=== PATIENT | male | born 1960 | race Two or more races ===

== ENCOUNTER → 2017-01-10 | Outpatient (CLI) | payer BC ==
--- NOTE | 2017-01-10 11:18 | ECGEPIP ---
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
--- NOTE | 2017-01-10 11:59 | REP ---
CHEST X-RAY PA AND LATERAL: 01/10/2017. Comparison: 08/30/2011, 03/30/2008. Clinical history: Hypertension. Findings: The lungs are well inflated and clear. There is no infiltrate, effusion, atelectasis or mass. The heart, mediastinal and hilar contours were normal. The bony thorax shows no focal lesion but there are marginal osteophytes present. No compression deformity is seen. There is no free air under the diaphragm. Impression: 1. No acute cardiopulmonary disease, stable chest. Signed by Vinnie Sepulveda MD 01/10/2017 07:34 P
[2017-01-10 12:05] LABS: MEAN CORPUSCULAR HEMOGLOBIN 32.6 pg (27.0-33.0); MEAN CORPUSCULAR HGB CONC 34.2 g/dl (32.0-36.5); MEAN CORPUSCULAR VOLUME 95.4 fl (80.0-96.0); RED CELL DISTRIBUTION WIDTH 11.7 % (11.5-14.5); WHITE BLOOD COUNT 4.3 K/mm3 (4.0-10.0)
[2017-01-10 13:03] LABS: ALBUMIN 4.4 GM/DL (3.2-5.2); ALBUMIN/GLOBULIN RATIO 1.26 (1.00-1.93); ALKALINE PHOSPHATASE 123 U/L (45-117); ALT/SGPT 97 U/L (12-78); ANION GAP 10 MEQ/L (8-16); AST/SGOT 47 U/L (15-37); BILIRUBIN,TOTAL 0.6 MG/DL (0.2-1.0); BLOOD UREA NITROGEN 14 MG/DL (7-18); CALCIUM LEVEL 9.5 MG/DL (8.5-10.1); CARBON DIOXIDE LEVEL 28 MEQ/L (21-32); CHLORIDE LEVEL 101 MEQ/L (98-107); CHOLESTEROL LEVEL 267 MG/DL (<200); CREATININE FOR GFR 0.79 MG/DL (0.70-1.30); GLOMERULAR FILTRATION RATE > 60.0 (>56); GLUCOSE, FASTING 118 MG/DL (70-105); POTASSIUM SERUM 3.8 MEQ/L (3.5-5.1); SODIUM LEVEL 139 MEQ/L (136-145); THYROXINE (T4) 8.1 UG/DL (4.5-12.0); TOTAL PROTEIN 7.9 GM/DL (6.4-8.2); TRIGLYCERIDES LEVEL 123 MG/DL (<150)
== END ==
LOC: M LAB 09:30
PROVIDERS: ATTEND Family Medicine
DX: I10 Essential (primary) hypertension (principal); N40.0 Benign prostatic hyperplasia without lower urinary tract symptoms
CPT/HCPCS: 36415; 71020; 80053; 80061; 83036; 84403; 84436; 84443; 84480; 85027; 93005; G0103

== ENCOUNTER → 2018-10-25 | Outpatient (CLI) | payer BC ==
[2018-10-25 17:03] LABS: BASO % 0.6 % (0.0-1.0); EOS % 0.4 % (0.0-3.0); HEMATOCRIT 45.4 % (42.0-52.0); HEMOGLOBIN 15.6 g/dl (13.5-17.5); IMMATURE GRANULOCYTE % 0.2 % (0-3.0); LYMPH # 1.5 10^3/uL (1.5-4.5); LYMPH % 28.1 % (24.0-44.0); MEAN CORPUSCULAR HEMOGLOBIN 33.1 pg (27.0-33.0); MEAN CORPUSCULAR HGB CONC 34.4 g/dl (32.0-36.5); MEAN CORPUSCULAR VOLUME 96.2 fl (80.0-96.0); MONO # 0.4 10^3/uL (0.0-0.8); MONO % 7.8 % (0.0-5.0); NEUTROPHILS # 3.3 10^3/uL (1.8-7.7); NEUTROPHILS % 62.9 % (36.0-66.0); PLATELET COUNT, AUTOMATED 196 10^3/uL (150-450); RED BLOOD COUNT 4.72 10^6/uL (4.30-6.10); RED CELL DISTRIBUTION WIDTH 11.9 % (11.5-14.5); WHITE BLOOD COUNT 5.2 10^3/uL (4.0-10.0)
[2018-10-25 17:13] LABS: ALBUMIN 4.2 GM/DL (3.2-5.2); ALBUMIN/GLOBULIN RATIO 1.17 (1.00-1.93); ALKALINE PHOSPHATASE 100 U/L (45-117); ALT/SGPT 111 U/L (12-78); ANION GAP 9 MEQ/L (8-16); AST/SGOT 58 U/L (7-37); BILIRUBIN,TOTAL 0.6 MG/DL (0.2-1.0); BLOOD UREA NITROGEN 9 MG/DL (7-18); CALCIUM LEVEL 9.2 MG/DL (8.5-10.1); CARBON DIOXIDE LEVEL 29 MEQ/L (21-32); CHLORIDE LEVEL 101 MEQ/L (98-107); CREATININE FOR GFR 0.67 MG/DL (0.70-1.30); FREE T4 1.01 NG/DL (0.76-1.46); GLOMERULAR FILTRATION RATE > 60.0 (>56); GLUCOSE, FASTING 84 MG/DL (70-100); POTASSIUM SERUM 3.8 MEQ/L (3.5-5.1); SODIUM LEVEL 139 MEQ/L (136-145); TOTAL PROTEIN 7.8 GM/DL (6.4-8.2)
== END ==
LOC: M WUC 12:50
DX: I10 Essential (primary) hypertension (principal)
CPT/HCPCS: 84443

== ENCOUNTER 2018-11-25 11:39 | Emergency (ER) | payer BC, OTHER ==
[~2018-11-25] VITALS: Ht 167.6 cm; Wt 93.2 kg
[2018-11-25 11:40] VITALS: BP 199/95
[2018-11-25] MEDS ORDERED: LISI20TA (11:46)
[2018-11-25] MEDS ORDERED: ACETAMINOPHEN 325 MG TAB PO ONE (13:00)
[2018-11-25] MEDS ORDERED: IBUPROFEN 600 MG TAB PO ONE (13:00)
--- NOTE | 2018-11-25 13:22 | REP ---
Clinical: Trauma. Technique: Internal rotation, external rotation, and Y view of the left shoulder. 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 Findings include osteophyte and spurring along the acromion process as well as blunting and spurring noted along the inferior margin of the glenoid and humeral head. Subtle injury involving the glenoid including the coracoid process cannot be excluded. Impression: Degenerative changes and evidence for old injury. Subtle injury involving the glenoid and coracoid process cannot be excluded. Electronically Signed by Neville Brewster MD 11/25/2018 01:13 P
== END 2018-11-25 14:33 | disposition home or self-care (01) ==
LOC: M ED 11:39
DX: S49.92XA Unspecified injury of left shoulder and upper arm, initial encounter (principal); M19.012 Primary osteoarthritis, left shoulder; W11.XXXA Fall on and from ladder, initial encounter; Y92.89 Other specified places as the place of occurrence of the external cause; Y99.0 Civilian activity done for income or pay; I10 Essential (primary) hypertension; Z79.899 Other long term (current) drug therapy

== ENCOUNTER → 2021-05-25 | Outpatient (CLI) | payer BC ==
[~2021-05-25] MED LIST: LISI20TA35
[2021-05-25 09:46] LABS: BASO % 0.7 % (0.0-1.0); EOS # 0.1 10^3/uL (0.0-0.5); EOS % 1.4 % (0.0-3.0); HEMATOCRIT 41.5 % (42.0-52.0); HEMOGLOBIN 14.5 g/dl (13.5-17.5); LYMPH # 1.1 10^3/uL (1.5-5.0); LYMPH % 24.3 % (24.0-44.0); MEAN CORPUSCULAR HEMOGLOBIN 32.7 pg (27.0-33.0); MEAN CORPUSCULAR HGB CONC 34.9 g/dl (32.0-36.5); MEAN CORPUSCULAR VOLUME 93.7 fl (80.0-96.0); MONO # 0.6 10^3/uL (0.0-0.8); MONO % 12.7 % (2.0-8.0); NEUTROPHILS # 2.6 10^3/uL (1.5-8.5); NEUTROPHILS % 60.7 % (36.0-66.0); PLATELET COUNT, AUTOMATED 193 10^3/uL (150-450); RED BLOOD COUNT 4.43 10^6/uL (4.30-6.10); WHITE BLOOD COUNT 4.3 10^3/uL (4.0-10.0)
[2021-05-25 10:17] LABS: HEMOGLOBIN A1c 5.4 %
[2021-05-25 10:27] LABS: ALBUMIN 4.1 GM/DL (3.2-5.2); ALT/SGPT 113 U/L (12-78); BLOOD UREA NITROGEN 6 MG/DL (7-18); CALCIUM LEVEL 9.1 MG/DL (8.8-10.2); CARBON DIOXIDE LEVEL 32 MEQ/L (21-32); CHLORIDE LEVEL 94 MEQ/L (98-107); CHOLESTEROL LEVEL 250 MG/DL (<200); CHOLESTEROL RISK RATIO 2.551 (<5); CREATININE FOR GFR 0.56 MG/DL (0.70-1.30); GLOMERULAR FILTRATION RATE > 60.0 (>49); GLUCOSE, FASTING 118 MG/DL (70-100); HDL CHOLESTEROL 98 MG/DL (>40); LDL CHOLESTEROL 142 MG/DL (<100); NON-HDL-C 152 MG/DL; POTASSIUM SERUM 3.2 MEQ/L (3.5-5.1); SODIUM LEVEL 132 MEQ/L (136-145); TOTAL PROTEIN 7.3 GM/DL (6.4-8.2); TRIGLYCERIDES LEVEL 52 MG/DL (<150)
== END ==
LOC: M LAB 08:14
PROVIDERS: ATTEND Physician Assistant Medical
DX: I10 Essential (primary) hypertension (principal)

== ENCOUNTER → 2021-06-19 | Outpatient (CLI) | payer BC ==
--- NOTE | 2021-06-19 08:23 | REP ---
INDICATION: ELEVATED LABS. COMPARISON: None. TECHNIQUE: Transabdominal right upper quadrant sonography. FINDINGS: Scanning through the right upper quadrant of the abdomen demonstrates a normal sized, thin-walled gallbladder without evidence of stone or polyp. Common bile duct is normal measuring 0.5 cm in greatest diameter. No focal liver lesion is seen. Liver size is normal. No pancreatic abnormality is observed. No right renal abnormality is seen. There is no evidence of ascites. The right kidney measures 11.7 x 6.5 x 5.7 cm. There is evidence of mild fatty infiltration of the liver. IMPRESSION: Evidence of mild fatty infiltration of the liver. Otherwise negative right upper quadrant sonogram.. <Electronically signed by Pedro Luis Steel > 06/19/21 1940
== END ==
LOC: M RAD 07:11
PROVIDERS: ATTEND Physician Assistant Medical
DX: R74.8 Abnormal levels of other serum enzymes (principal)

== ENCOUNTER → 2021-07-09 | Outpatient (REF) | payer BC ==
[2021-07-09 19:50] LABS: HEMOGLOBIN A1c 5.4 %
[2021-07-09 19:58] LABS: ALBUMIN 4.3 GM/DL (3.2-5.2); ALT/SGPT 88 U/L (12-78); BILIRUBIN,TOTAL 0.9 MG/DL (0.2-1.0); BLOOD UREA NITROGEN 8 MG/DL (7-18); CALCIUM LEVEL 9.5 MG/DL (8.8-10.2); CARBON DIOXIDE LEVEL 28 MEQ/L (21-32); CHLORIDE LEVEL 92 MEQ/L (98-107); CREATININE FOR GFR 0.63 MG/DL (0.70-1.30); GLOMERULAR FILTRATION RATE > 60.0 (>49); GLUCOSE, FASTING 86 MG/DL (70-100); POTASSIUM SERUM 3.2 MEQ/L (3.5-5.1); SODIUM LEVEL 130 MEQ/L (136-145); TOTAL PROTEIN 7.8 GM/DL (6.4-8.2)
[2021-07-09 20:19] LABS: HEPATITIS B SURFACE ANTIGEN NEGATIVE (NEGATIVE)
[2021-07-09 20:46] LABS: HEPATITIS C VIRUS ABY INDEX 0.1 INDEX (<0.8)
[2021-07-09 20:47] LABS: HEPATITIS B CORE ANTIBODY IGM NEGATIVE (NEGATIVE)
[2021-07-09 20:49] LABS: HEPATITIS A ANTIBODY IGM NEGATIVE (NEGATIVE)
== END ==
LOC: M SFHCADAM 15:34
PROVIDERS: ATTEND Physician Assistant Medical
DX: I10 Essential (primary) hypertension (principal); F10.10 Alcohol abuse, uncomplicated; Z13.220 Encounter for screening for lipoid disorders; Z13.0 Encounter for screening for diseases of the blood and blood-forming organs and certain disorders involving the immune mechanism; R74.8 Abnormal levels of other serum enzymes

== ENCOUNTER 2021-10-07 14:14 | Inpatient (IN) | payer BC ==
[~2021-10-07] VITALS: Ht 165.1 cm; Wt 83.7 kg
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
--- OUTSIDE RECORDS SUMMARY | 2021-10-07 14:21 | CCD ---
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 If such information is present, then the following federally mandated warning applies: This information has been disclosed to you from records protected by federal confidentiality rules (42 CFR part 2). The federal rules prohibit you from making any further disclosure of this information unless further disclosure is expressly permitted by the written consent of the person to whom it pertains or as otherwise permitted by 42 CFR part 2. A general authorization for the release of medical or other information is NOT sufficient for this purpose. The Federal rules restrict any use of the information to criminally investigate or prosecute any alcohol or drug abuse patient.The records that you are about to access may contain highly sensitive health information, the redisclosure of which is protected by Article 27-F of the [facility] Public Health law. If you continue you may have access to information: Regarding HIV / AIDS; Provided by facilities licensed or operated by the [facility] Office of Mental Health; or Provided by the [facility] Office for People With Developmental Disabilities. If such information is present, then the following [facility] mandated warning applies: This information has been disclosed to you from confidential records which are protected by state law. State law prohibits you from making any further disclosure of this information without the specific written consent of the person to whom it pertains, or as otherwise permitted by law. Any unauthorized further disclosure in violation of state law may result in a fine or senior living sentence or both. A general authorization for the release of medical or other information is NOT sufficient authorization for further disc losure. Family History Family Member Name Family Member Gender Family Member Status Date o f Status Description Data Source(s) Unknown Unknown Problem MEDENT ([facility]) Unknown Male Problem MEDENT ([facility]) Encounters Encounter Providers Location Date Indications Data Source(s ) [place] [address] [facility] [address] 07/09/2021 12:00:00 AM EDT eCW1 ([facility]) Unknown [address] [facility] [place] [address] 06/06/2021 12:00:00 AM EDT eCW1 ([facility]) [place] [address] [facility] [place] [address] 06/04/2021 12:00:00 AM EDT eCW1 ([facility]) [place] [address] [facility] [address] 05/17/2021 12:00:00 AM EDT eCW1 ([facility]) Immunizations Vaccine Date Status Description Data Source(s) COVID-19 VACCINE Pfizer 09/27/2021 12:00:00 AM EDT completed [facility] Vaccine Series Complete: YESThis Data wa s Submitted to [facility] Via [employer]. COVID-19 VACCINE Pfizer 03/01/2021 12:00:00 AM EDT completed [facility] Vaccine Series Complete: YESThis Data wa s Submitted to [facility] [employer]. COVID-19 VACCINE Pfizer 02/08/2021 12:00:00 AM EST completed [facility] Vaccine Series Complete: NOThis Data was Submitted to [facility] Via [employer]. Medications Medication Brand Name Start Date Product Form Dose Route Admi nistrative Instructions Pharmacy Instructions Status Indications Reaction Description Data Source(s) Lisinopril 20 MG Oral Tablet Lisinopril 20 MG 06/06/2021 12:00:00 A M EDT 1.0 {tablet} active Lisinopril 20 MG eCW1 ( [facility]) Lisinopril 20 MG Oral Tablet Lisinopril 20 MG 06/06/2021 12:00:00 A M EDT 1.0 {tablet} active Lisinopril 20 MG eCW1 ( [facility]) Lisinopril 20 MG Oral Tablet Lisinopril 20 MG 06/06/2021 12:00:00 A M EDT 1.0 {tablet} active Lisinopril 20 MG eCW1 ( [facility]) Chlorthalidone 25 MG Oral Tablet Chlorthalidone 25 MG 2020 12:00:00 AM EDT 1.0 {tablet_in_the_morning_with_food} active Chlorthalidone 25 MG eCW1 ([facility]) Chlorthalidone 25 MG Oral Tablet Chlorthalidone 25 MG 2020 12:00:00 AM EDT 1.0 {tablet_in_the_morning_with_food} active Chlorthalidone 25 MG eCW1 ([facility]) Chlorthalidone 25 MG Oral Tablet Chlorthalidone 25 MG 2020 12:00:00 AM EDT 1.0 {tablet_in_the_morning_with_food} active Chlorthalidone 25 MG eCW1 ([facility]) Chlorthalidone 25 MG Oral Tablet Chlorthalidone 25 MG 2020 12:00:00 AM EDT 1.0 {tablet_in_the_morning_with_food} active Chlorthalidone 25 MG eCW1 ([facility]) Insurance Providers Payer name Policy type / Coverage type Policy ID Covered libertarian ID Covered libertarian's relationship to yepez Policy Yepez Plan Information BS [facility] Part B [id number] Self Y [id number] BS [facility] Part B [id number] Self BCBS [place] 302/[phone] [id number] SP [id number] BCBS [place] PPO 302/307 [id number] SP [id number] [employer] BCBS FEDERAL [id number] SP [id number] BCBS [place] PPO 302/307 [id number] SP [id number] [place]BS [place] PPO 302/307 [id number] SP [id number] BS [place] Part B [id number] Self V [id number] BS [place] [facility] [id number] Self [facility] [place] [id number] Self V [id number] BS [place] [facility] Part B [id number] Self [employer] () Workers Compensation [id number] Self [id number] [employer] () Workers Compensation [id number] Self [place] () Workers Compensation [id number] Self [id number] [employer] () Workers Compensation [id number] Self [id number] [employer] O [id number] S [id number] [employer] BC-BS PPO [id number] SP [id number] [employer] O [id number] S [id number] [employer] [id number] SP [id number] [employer] O [id number] S [id number] SELF PAY O [id number] S [id number] SELF PAY O UNAVAILABLE [id number] S UNAVAILA BLE [employer] BCBS B [id number] S [id number] OTHER WORKERS COMPENSATION [id number] SP [id number] [employer] [id number] Self [id number] [employer] [id number] Self [id number] SELF PAY ONLY UNAVAILABLE SP UNAV AILABLE BC[employer] [id number] Self [employer] BC-BS PPO 306 [id number] SP [id number] Problems, Conditions, and Diagnoses Code Display Name Description Problem Type Effective Dates Data Source(s) I10 [id number] Essential hypertension Problem 05/17/2021 12 :00:00 AM EDT eCW1 ([facility]) F10.10 [id number] Alcohol abuse Problem 05/17/2021 12:00:00 AM EDT eCW1 ([facility]) Surgeries/Procedures Procedure Description Date Indications Data Source(s) ECG ROUTINE ECG W/LEAST 12 LDS W/I&R 05/17/2021 12:00: 00 AM EDT eCW1 ([facility]) Results ID Date Data Source HEPATITIS C ANTIBODY INDEX 07/09/2021 12:00:00 AM EDT eCW1 ( [facility]) Name Value Range Interpretation Code Description Data Whit rce(s) Supporting Document(s) 0.1 <0.8 HEPATITIS C VIRUS DEBRA INDEX eC W1 ([facility]) ID Date Data Source HEPATITIS B SURFACE ANTIGEN 07/09/2021 12:00:00 AM EDT eCW1 ([facility]) Name Value Range Interpretation Code Description Data Whit rce(s) Supporting Document(s) NEGATIVE NEGATIVE HEPATITIS B SURFACE ANTIG EN eCW1 ([facility]) ID Date Data Source HEPATITIS B CORE ANTIBODY IGM 07/09/2021 12:00:00 AM EDT eCW 1 ([facility]) Name Value Range Interpretation Code Description Data Whit rce(s) Supporting Document(s) NEGATIVE NEGATIVE HEPATITIS B CORE ANTIBODY IGM eCW1 ([facility]) ID Date Data Source [id number] 07/09/2021 12:00:00 AM EDT eCW1 (Counts include 234 beds at the [facility]) Name Value Range Interpretation Code Description Data Whit rce(s) Supporting Document(s) Hemoglobin A1c/Hemoglobin.total in Blood 5.4 HEMOGLOBIN A1c eCW1 ([facility]) ID Date Data Source HEPATITIS A ANTIBODY IGM 07/09/2021 12:00:00 AM EDT eCW1 ([facility]) Name Value Range Interpretation Code Description Data Whit rce(s) Supporting Document(s) NEGATIVE NEGATIVE HEPATITIS A ANTIBODY IGM eCW1 ([facility]) ID Date Data Source Comprehensive Metabolic Profile (CMP) 07/09/2021 12:00:00 AM EDT eCW1 ([facility]) Name Value Range Interpretation Code Description Data Whit rce(s) Supporting Document(s) 86 70-100 GLUCOSE, FASTING eCW1 (Counts include 234 beds at the [facility]) > 60.0 >49 GLOMERULAR FILTRATION RATE eCW 1 ([facility]) 130 136-145 SODIUM LEVEL eCW1 ([facility]) 8 7-18 BLOOD UREA NITROGEN eCW1 ([facility]) 0.63 0.70-1.30 CREATININE FOR GFR eCW1 (Replaced by [facility]) 3.2 3.5-5.1 POTASSIUM SERUM eCW1 ([facility]) 92 98-107 CHLORIDE LEVEL eCW1 ([facility]) 28 21-32 CARBON DIOXIDE LEVEL eCW1 ([facility]) 88 12-78 ALT/SGPT eCW1 ([facility]) 9.5 8.8-10.2 CALCIUM LEVEL eCW1 ([facility]) 58 7-37 AST/SGOT eCW1 ([facility]) 7.8 6.4-8.2 TOTAL PROTEIN eCW1 ([facility]) 0.9 0.2-1.0 BILIRUBIN,TOTAL eCW1 ([facility]) 129 45-117 ALKALINE PHOSPHATASE eCW1 ([facility]) 4.3 3.2-5.2 ALBUMIN eCW1 ([facility]) 1.2 ALBUMIN/GLOBULIN RATIO eCW1 ([facility]) ID Date Data Source ALPHA FETOPROTEIN TUMOR QUANT 07/09/2021 12:00:00 AM EDT eCW 1 ([facility]) Name Value Range Interpretation Code Description Data Whit rce(s) Supporting Document(s) 2.0 <8.1 ALPHA FETOPROTEIN TUMOR Q UANT eCW1 ([facility]) Procedure Social History Code Duration Value Status Description Data Source(s ) Smoking 07/09/2021 12:00:00 AM EDT Never Smoker completed Never S moker eCW1 ([facility]) Smoking 05/17/2021 12:00:00 AM EDT Never Smoker completed Never S moker eCW1 ([facility]) Smoking 05/17/2021 12:00:00 AM EDT Never Smoker completed Never S moker eCW1 ([facility]) Smoking 05/17/2021 12:00:00 AM EDT Never Smoker completed Never S moker eCW1 ([facility]) Vital Signs ID Date Data Source UNK Name Value Range Interpretation Code Description Data Source(s) Body weight 196 [lb_av] 196 [lb_av] eCW1 (Replaced by [facility]) Body height 60 [in_i] 60 [in_i] eCW1 (Counts include 234 beds at the [facility]) Body mass index (BMI) [Ratio] 38.27 kg/m2 38.27 kg/m2 eCW1 ([facility]) Heart rate 106 /min 106 /min eCW1 ([facility]) Respiratory rate 18 /min 18 /min eCW1 ([facility]) Body temperature 96.1 [degF] 96.1 [degF] eCW1 ( [facility]) Systolic blood pressure 136 mm[Hg] 136 mm[Hg] e CW1 ([facility]) Diastolic blood pressure 74 mm[Hg] 74 mm[Hg] eCW1 ([facility]) Body weight 204 [lb_av] 204 [lb_av] eCW1 (Replaced by [facility]) Body height 60 [in_i] 60 [in_i] eCW1 (Counts include 234 beds at the [facility]) Body mass index (BMI) [Ratio] 39.84 kg/m2 39.84 kg/m2 eCW1 ([facility]) Heart rate 82 /min 82 /min eCW1 ([facility]) Respiratory rate 18 /min 18 /min eCW1 ([facility]) Body temperature 98.1 [degF] 98.1 [degF] eCW1 ( [facility]) Systolic blood pressure 186 mm[Hg] 186 mm[Hg] e CW1 ([facility]) Diastolic blood pressure 106 mm[Hg] 106 mm[Hg] eCW1 ([facility]) Patient Treatment Plan of Care Planned Activity Planned Date Details Description Data Source (s) Lisinopril 20 MG Oral Tablet 06/06/2021 12:00:00 AM EDT eCW1 ([facility]) Lisinopril 20 MG Oral Tablet 06/06/2021 12:00:00 AM EDT eCW1 ([facility]) Lisinopril 20 MG Oral Tablet 06/06/2021 12:00:00 AM EDT eCW1 ([facility]) Chlorthalidone 25 MG Oral Tablet 05/17/2021 12:00:00 AM EDT eCW1 ([facility]) Chlorthalidone 25 MG Oral Tablet 05/17/2021 12:00:00 AM EDT eCW1 ([facility]) Chlorthalidone 25 MG Oral Tablet 05/17/2021 12:00:00 AM EDT eCW1 ([facility]) Chlorthalidone 25 MG Oral Tablet 05/17/2021 12:00:00 AM EDT eCW1 ([facility])
--- OUTSIDE RECORDS SUMMARY | 2021-10-07 16:18 | CCD ---
Author Author [facility] Organization [facility] Address Unknown Phone Unavailable Support Name Relationship Address Phone ANA WORKER Next Of Kin [address] [place] [phone] ORGEONJUANITAA Next Of Kin [address] [place] [address] 7 [place] [address] PARAGON Next Of Kin [facility] [place] [address] [employer] Next Of Kin [address] [place] [address] ORGONJUANITAA Next [place] [address] [address] [place] [phone] OrgeonJuanitaa [address] [address] Unavailable Re-disclosure Warning The records that you [...] is protected by Article 27-F of the [facility] Public Health law. If you continue you may have access to information: Regarding HIV / AIDS; Provided by facilities licensed or operated by the [facility] Office of Mental Health; or Provided by the [facility] Office for People With Developmental Disabilities. If such information is present, then the following [facility] mandated warning applies: This information has [...] law may result in a fine or usp sentence or both. A general authorization for [...] Date Indications Data Source(s ) [place] [address] [facility] [address] 07/09/2021 12:00:00 AM EDT eCW1 ([facility]) Unknown [address] [facility] [place] [address] 06/06/2021 12:00:00 AM EDT eCW1 ([facility]) Unknown [address] [facility] [address] 06/04/2021 12:00:00 AM EDT eCW1 ([facility]) [place] [address] [facility] [address] 05/17/2021 12:00:00 AM EDT eCW1 ([facility]) Immunizations Vaccine Date Status Description Data Source(s) COVID-19 VACCINE Pfizer 09/27/2021 12:00:00 AM EDT completed [facility] Vaccine Series Complete: YESThis Data wa s Submitted to [facility]. COVID-19 VACCINE Pfizer 03/01/2021 12:00:00 AM EDT completed [facility] Vaccine Series Complete: YESThis Data wa s Submitted to [facility]. COVID-19 VACCINE Pfizer 02/08/2021 12:00:00 AM EST completed [facility] Vaccine Series Complete: NOThis Data was Submitted to [facility]. Medications Medication Brand Name Start Date Product Form Dose Route Admi nistrative Instructions Pharmacy Instructions Status Indications Reaction Description Data Source(s) Lisinopril 20 MG Oral Tablet Lisinopril 20 MG 06/06/2021 12:00:00 A M EDT 1.0 {tablet} active Lisinopril 20 MG eCW1 ( [facility]) Lisinopril 20 MG Oral Tablet Lisinopril 20 MG 06/06/2021 12:00:00 A M EDT 1.0 {tablet} active Lisinopril 20 MG eCW1 ( [facility]) Lisinopril 20 MG Oral Tablet Lisinopril 20 MG 06/06/2021 12:00:00 A M EDT 1.0 {tablet} active Lisinopril 20 MG eCW1 ( [facility]) Chlorthalidone 25 MG Oral Tablet Chlorthalidone 25 MG 2020 12:00:00 AM EDT 1.0 {tablet_in_the_morning_with_food} active Chlorthalidone 25 MG eCW1 ([facility]) Chlorthalidone 25 MG Oral Tablet Chlorthalidone 25 MG 2020 12:00:00 AM EDT 1.0 {tablet_in_the_morning_with_food} active Chlorthalidone 25 MG eCW1 ([facility]) Chlorthalidone 25 MG Oral Tablet Chlorthalidone 25 MG 2020 12:00:00 AM EDT 1.0 {tablet_in_the_morning_with_food} active Chlorthalidone 25 MG eCW1 ([facility]) Chlorthalidone 25 MG Oral Tablet Chlorthalidone 25 MG 2020 12:00:00 AM EDT 1.0 {tablet_in_the_morning_with_food} active Chlorthalidone 25 MG eCW1 ([facility]) Insurance Providers Payer name Policy type / Coverage type Policy ID Covered green party ID Covered green party's relationship to yepez Policy Yepez Plan Information BS [facility] Part B [id number] Self Y [id number] BS [facility] Part B [id number] Self [place] 302/307 [id number] SP [id number] [place] [place] PPO 302/307 [id number] SP [id number] [employer] BCBS FED[place]AL [id number] SP [id number] [employer] [place] PPO 302/307 [id number] SP [id number] [place] [place] PPO 302/307 [id number] SP [id number] BS [place] [facility] Part B [id number] Self V [id number] BS [place] [facility] Part B [id number] Self BS [place] [facility] Part B [id number] Self V [id number] BS [place] [facility] Part B [id number] Self [employer] () Workers Compensation [id number] Self [id number] [employer] () Workers Compensation [id number] Self [employer] () Workers Compensation [id number] Self [id number] [employer] () Workers Compensation [id number] Self [id number] [employer] O [id number] S [id number] [employer] BC-BS PPO [id number] SP [id number] [employer] O [id number] S [id number] [employer] [id number] SP [id number] [employer] O [id number] S [id number] SELF PAY O [id number] S [id number] SELF PAY O UNAVAILABLE [id number] S UNAVAILA BLE [employer] BCBS B [id number] S [id number] OTHER WORKERS COMPENSATION [id number] SP [id number] [employer] [id number] Self [id number] [employer] [id number] Self [id number] SELF PAY ONLY UNAVAILABLE SP UNAV AILABLE [employer] [id number] Self [employer] BC-BS PPO 306 [id number] SP [id number] Problems, Conditions, and Diagnoses Code Display Name Description Problem Type Effective Dates Data Source(s) I10 [id number] Essential hypertension Problem 05/17/2021 12 :00:00 AM EDT eCW1 ([facility]) F10.10 [id number] Alcohol abuse Problem 05/17/2021 12:00:00 AM EDT eCW1 ([facility]) Surgeries/Procedures Procedure Description Date Indications Data Source(s) ECG ROUTINE ECG W/LEAST 12 LDS W/I&R 05/17/2021 12:00: 00 AM EDT eCW1 ([facility]) Results ID Date Data Source HEPATITIS C ANTIBODY INDEX 07/09/2021 12:00:00 AM EDT eCW1 ( [facility]) Name Value Range Interpretation Code Description Data Whit rce(s) Supporting Document(s) 0.1 <0.8 HEPATITIS C VIRUS DEBRA INDEX eC W1 ([facility]) ID Date Data Source HEPATITIS B SURFACE ANTIGEN 07/09/2021 12:00:00 AM EDT eCW1 ([facility]) Name Value Range Interpretation Code Description Data Whit rce(s) Supporting Document(s) NEGATIVE NEGATIVE HEPATITIS B SURFACE ANTIG EN eCW1 ([facility]) ID Date Data Source HEPATITIS B CORE ANTIBODY IGM 07/09/2021 12:00:00 AM EDT eCW 1 ([facility]) Name Value Range Interpretation Code Description Data Whit rce(s) Supporting Document(s) NEGATIVE NEGATIVE HEPATITIS B CORE ANTIBODY IGM eCW1 ([facility]) ID Date Data Source [id number] 07/09/2021 12:00:00 AM EDT eCW1 ([facility]) Name Value Range Interpretation Code Description Data Whit rce(s) Supporting Document(s) Hemoglobin A1c/Hemoglobin.total in Blood 5.4 HEMOGLOBIN A1c eCW1 ([facility]) ID Date Data Source HEPATITIS A ANTIBODY IGM 07/09/2021 12:00:00 AM EDT eCW1 ([facility]) Name Value Range Interpretation Code Description Data Whit rce(s) Supporting Document(s) NEGATIVE NEGATIVE HEPATITIS A ANTIBODY IGM eCW1 ([facility]) ID Date Data Source Comprehensive Metabolic Profile (CMP) 07/09/2021 12:00:00 AM EDT eCW1 ([facility]) Name Value Range Interpretation Code Description Data Whit rce(s) Supporting Document(s) 86 70-100 GLUCOSE, FASTING eCW1 ([facility]) > 60.0 >49 GLOMERULAR FILTRATION RATE eCW 1 ([facility]) 130 136-145 SODIUM LEVEL eCW1 ([facility]) 8 7-18 BLOOD UREA NITROGEN eCW1 ([facility]) 0.63 0.70-1.30 CREATININE FOR GFR eCW1 ([facility]) 3.2 3.5-5.1 POTASSIUM SERUM eCW1 ([facility]) 92 98-107 CHLORIDE LEVEL eCW1 ([facility]) 28 21-32 CARBON DIOXIDE LEVEL eCW1 ([facility]) 88 12-78 ALT/SGPT eCW1 ([facility]) 9.5 8.8-10.2 CALCIUM LEVEL eCW1 ([facility]) 58 7-37 AST/SGOT eCW1 ([facility]) 7.8 6.4-8.2 TOTAL PROTEIN eCW1 ([facility]) 0.9 0.2-1.0 BILIRUBIN,TOTAL eCW1 ([facility]) 129 45-117 ALKALINE PHOSPHATASE eCW1 ([facility]) 4.3 3.2-5.2 ALBUMIN eCW1 ([facility]) 1.2 ALBUMIN/GLOBULIN RATIO eCW1 ([facility]) ID Date Data Source ALPHA FETOPROTEIN TUMOR QUANT 07/09/2021 12:00:00 AM EDT eCW 1 ([facility]) Name Value Range Interpretation Code Description Data Whit rce(s) Supporting Document(s) 2.0 <8.1 ALPHA FETOPROTEIN TUMOR Q UANT eCW1 ([facility]) Procedure Social History Code Duration Value Status Description Data Source(s ) Smoking 07/09/2021 12:00:00 AM EDT Never Smoker completed Never S moker eCW1 ([facility]) Smoking 05/17/2021 12:00:00 AM EDT Never Smoker completed Never S moker eCW1 ([facility]) Smoking 05/17/2021 12:00:00 AM EDT Never Smoker completed Never S moker eCW1 ([facility]) Smoking 05/17/2021 12:00:00 AM EDT Never Smoker completed Never S moker eCW1 ([facility]) Vital Signs ID Date Data Source UNK Name Value Range Interpretation Code Description Data Source(s) Body weight 196 [lb_av] 196 [lb_av] eCW1 ([facility]) Body height 60 [in_i] 60 [in_i] eCW1 ([facility]) Body mass index (BMI) [Ratio] 38.27 kg/m2 38.27 kg/m2 eCW1 ([facility]) Heart rate 106 /min 106 /min eCW1 ([facility]) Respiratory rate 18 /min 18 /min eCW1 ([facility]) Body temperature 96.1 [degF] 96.1 [degF] eCW1 ( [facility]) Systolic blood pressure 136 mm[Hg] 136 mm[Hg] e CW1 ([facility]) Diastolic blood pressure 74 mm[Hg] 74 mm[Hg] eCW1 ([facility]) Body weight 204 [lb_av] 204 [lb_av] eCW1 ([facility]) Body height 60 [in_i] 60 [in_i] eCW1 ([facility]) Body mass index (BMI) [Ratio] 39.84 kg/m2 39.84 kg/m2 eCW1 ([facility]) Heart rate 82 /min 82 /min eCW1 ([facility]) Respiratory rate 18 /min 18 /min eCW1 ([facility]) Body temperature 98.1 [degF] 98.1 [degF] eCW1 ( [facility]) Systolic blood pressure 186 mm[Hg] 186 mm[Hg] e CW1 ([facility]) Diastolic blood pressure 106 mm[Hg] 106 mm[Hg] eCW1 ([facility]) Patient Treatment Plan of Care Planned Activity Planned Date Details Description Data Source (s) Lisinopril 20 MG Oral Tablet 06/06/2021 12:00:00 AM EDT eCW1 ([facility]) Lisinopril 20 MG Oral Tablet 06/06/2021 12:00:00 AM EDT eCW1 ([facility]) Lisinopril 20 MG Oral Tablet 06/06/2021 12:00:00 AM EDT eCW1 ([facility]) Chlorthalidone 25 MG Oral Tablet 05/17/2021 12:00:00 AM EDT eCW1 ([facility]) Chlorthalidone 25 MG Oral Tablet 05/17/2021 12:00:00 AM EDT eCW1 ([facility]) Chlorthalidone 25 MG Oral Tablet 05/17/2021 12:00:00 AM EDT eCW1 ([facility]) Chlorthalidone 25 MG Oral Tablet 05/17/2021 12:00:00 AM EDT eCW1 ([facility])
--- NOTE | 2021-10-07 16:20 | REPVR ---
PROCEDURE INFORMATION: Exam: CT Head Without Contrast Exam date and time: 10/07/2021 3:58 PM Age: 61 years old Clinical indication: Visual disturbance; Additional info: Blurred vision TECHNIQUE: Imaging protocol: Computed tomography of the head without contrast. Radiation optimization: All CT scans at this facility use at least one of these dose optimization techniques: automated exposure control; mA and/or kV adjustment per patient size (includes targeted exams where dose is matched to clinical indication); or iterative reconstruction. COMPARISON: No relevant prior studies available. FINDINGS: Brain: No acute intracranial hemorrhage, cerebral edema, or midline shift. Cerebral ventricles: No hydrocephalus. Paranasal sinuses: There is no acute sinusitis. Mastoid air cells: Visualized mastoid air cells are well aerated. Orbital cavity: Unremarkable as visualized. Bones/joints: No acute fracture. Soft tissues: Unremarkable. IMPRESSION: No acute intracranial abnormality. Electronically signed by: Chandra Marcum On 10/07/2021 16:19:50 PM
[2021-10-07 17:10] LABS: MAGNESIUM LEVEL 1.9 MG/DL (1.8-2.4); PHOSPHORUS LEVEL 2.8 MG/DL (2.5-4.9)
[2021-10-07 17:11] LABS: BASO % 0.5 % (0.0-1.0); EOS # 0.2 10^3/uL (0.0-0.5); HEMATOCRIT 37.3 % (42.0-52.0); HEMOGLOBIN 13.6 g/dl (13.5-17.5); LYMPH # 0.4 10^3/uL (1.5-5.0); LYMPH % 5.9 % (24.0-44.0); MEAN CORPUSCULAR HEMOGLOBIN 33.8 pg (27.0-33.0); MEAN CORPUSCULAR HGB CONC 36.5 g/dl (32.0-36.5); MEAN CORPUSCULAR VOLUME 92.8 fl (80.0-96.0); MONO # 0.3 10^3/uL (0.0-0.8); MONO % 5.1 % (2.0-8.0); NEUTROPHILS # 5.4 10^3/uL (1.5-8.5); NEUTROPHILS % 85.2 % (36.0-66.0); PLATELET COUNT, AUTOMATED 231 10^3/uL (150-450); RED BLOOD COUNT 4.02 10^6/uL (4.30-6.10); WHITE BLOOD COUNT 6.3 10^3/uL (4.0-10.0)
[2021-10-07 17:20] LABS: ALT/SGPT 62 U/L (12-78); BILIRUBIN,TOTAL 0.9 MG/DL (0.2-1.0); BLOOD UREA NITROGEN 7 MG/DL (7-18); CARBON DIOXIDE LEVEL 28 MEQ/L (21-32); CHLORIDE LEVEL 86 MEQ/L (98-107); CK-MB VALUE MASS 3.2 NG/ML (<3.6); CPK CREATINE PHOSPHOKINASE 170 U/L (39-308); CREATININE FOR GFR 0.46 MG/DL (0.70-1.30); GLOMERULAR FILTRATION RATE > 60.0 (>49); GLUCOSE, FASTING 100 MG/DL (70-100); MB/CK RELATIVE INDEX 1.88 (< OR =4); POTASSIUM SERUM 3.2 MEQ/L (3.5-5.1); SODIUM LEVEL 124 MEQ/L (136-145); TOTAL PROTEIN 7.4 GM/DL (6.4-8.2); TROPONIN I < 0.02 NG/ML (< 0.10)
[2021-10-07 17:22] LABS: FOLATE 13.3 NG/ML (>5.4)
[2021-10-07] MEDS ORDERED: NS 1,000 ML IV ONE (17:55)
[2021-10-07 18:25] LABS: CREATININE,RANDOM URINE 79.7 MG/DL
[2021-10-07] MEDS ORDERED: CHLO125TA PO (18:34)
[2021-10-07] MEDS ORDERED: LISI20TA33 PO (18:34)
[2021-10-07] MEDS ORDERED: HOME MED LIST COMPLETE! XX SCH (18:35)
--- OUTSIDE RECORDS SUMMARY | 2021-10-07 18:36 | CCD ---
Author Author [facility] Organization [facility] Address Unknown Phone Unavailable Support Name Relationship Address Phone ANA WORKER Next Of Kin [address] [place] [id number] ORGEONJUANITAA Next Of Kin [address] [place] [address] [address] [place] [address] PARAGON Next Of Kin [facility] [place] [address] [employer] Next Of Kin [address] [place] [address] ORGONJUANITAA Next [place] [phone] [address] [place] [id number] OrgeonJuanitaa [address] [address] Unavailable Re-disclosure Warning The records that you [...] is protected by Article 27-F of the [facility] Public Health law. If you continue you may have access to information: Regarding HIV / AIDS; Provided by facilities licensed or operated by the [facility] Office of Mental Health; or Provided by the [facility] Office for People With Developmental Disabilities. If such information is present, then the following [facility] mandated warning applies: This information has [...] law may result in a fine or halfway sentence or both. A general authorization for [...] Date Indications Data Source(s ) [place] [address] [facility] [address] 07/09/2021 12:00:00 AM EDT eCW1 ([facility]) [place] [address] [facility] [place] [address] 06/06/2021 12:00:00 AM EDT eCW1 ([facility]) Unknown [address] [facility] [address] 06/04/2021 12:00:00 AM EDT eCW1 ([facility]) Outpatient [address] [facility] [address] 05/17/2021 12:00:00 AM EDT eCW1 ([facility]) Immunizations Vaccine Date Status Description Data Source(s) COVID-19 VACCINE Pfizer 09/27/2021 12:00:00 AM EDT completed [facility] Vaccine Series Complete: YESThis Data wa s Submitted to [facility]. COVID-19 VACCINE Pfizer 03/01/2021 12:00:00 AM EDT completed [facility] Vaccine Series Complete: YESThis Data wa s Submitted to [facility] [employer]. COVID-19 VACCINE Pfizer 02/08/2021 12:00:00 AM EST completed [facility] Vaccine Series Complete: NOThis Data was Submitted to [facility] [employer]. Medications Medication Brand Name Start Date Product Form Dose Route Admi nistrative Instructions Pharmacy Instructions Status Indications Reaction Description Data Source(s) Lisinopril 20 MG Oral Tablet Lisinopril 20 MG 06/06/2021 12:00:00 A M EDT 1.0 {tablet} active Lisinopril 20 MG eCW1 ( [facility]ly [facility], 1928–1983) Lisinopril 20 MG Oral Tablet Lisinopril 20 MG 06/06/2021 12:00:00 A M EDT 1.0 {tablet} active Lisinopril 20 MG eCW1 ( Formerly [facility], 1928–1983) Lisinopril 20 MG Oral Tablet Lisinopril 20 MG 06/06/2021 12:00:00 A M EDT 1.0 {tablet} active Lisinopril 20 MG eCW1 ( Formerly [facility], 1928–1983) Chlorthalidone 25 MG Oral Tablet Chlorthalidone 25 MG 2020 12:00:00 AM EDT 1.0 {tablet_in_the_morning_with_food} active Chlorthalidone 25 MG eCW1 (Formerly [facility], 1928–1983) Chlorthalidone 25 MG Oral Tablet Chlorthalidone 25 MG 2020 12:00:00 AM EDT 1.0 {tablet_in_the_morning_with_food} active Chlorthalidone 25 MG eCW1 (Formerly [facility], 1928–1983) Chlorthalidone 25 MG Oral Tablet Chlorthalidone 25 MG 2020 12:00:00 AM EDT 1.0 {tablet_in_the_morning_with_food} active Chlorthalidone 25 MG eCW1 (Formerly [facility], 1928–1983) Chlorthalidone 25 MG Oral Tablet Chlorthalidone 25 MG 2020 12:00:00 AM EDT 1.0 {tablet_in_the_morning_with_food} active Chlorthalidone 25 MG eCW1 (Formerly [facility], 1928–1983) Insurance Providers Payer name Policy type / Coverage type Policy ID Covered libertarian ID Covered libertarian's relationship to yepez Policy Yepez Plan Information BS [facility] Part B [id number] Self Y [id number] BS [facility] Part B [id number] Self [place]/307 [id number] SP [id number] [place] PPO 302/307 [id number] SP [id number] [employer]LLUS BCBS FEDERAL [id number] SP [id number] [place] PPO 302/307 [id number] SP [id number] [place] PPO 302/307 [id number] SP [id number] BS [place] Part B [id number] Self V [id number] BS [place] [id number] Self BS [place] [id number] Self V [id number] BS [place] Part B [id number] Self [employer] () Workers Compensation [id number] Self [id number] [employer] () Workers Compensation [id number] Self [place] [employer] () Workers Compensation [id number] Self [id number] [employer] () Workers Compensation [id number] Self [id number] [employer] O [id number] S [id number] EX[employer] BC-BS PPO [id number] SP [id number] GREAT DIVIDE O [id number] S [id number] GREAT DIVIDE [id number] SP [id number] GRE[employer] O [id number] S [id number] SELF PAY O [id number] S [id number] SELF PAY O UNAVAILABLE [id number] S UNAVAILA BLE [employer] BCBS B [id number] S [id number] OTHER WORKERS COMPENSATION [id number] SP [id number] [employer] Commercial [id number] Self [id number] BC[employer] [id number] Self [id number] SELF PAY ONLY UNAVAILABLE SP UNAV AILABLE BCBS/[employer] [id number] Self [employer] BC-BS PPO 306 [id number] SP [id number] Problems, Conditions, and Diagnoses Code Display Name Description Problem Type Effective Dates Data Source(s) I10 [id number] Essential hypertension Problem 05/17/2021 12 :00:00 AM EDT eCW1 ([facility]ly [facility], [facility]1983) F10.10 [id number] Alcohol abuse Problem 05/17/2021 12:00:00 AM EDT eCW1 (Formerly [facility], [facility]–1983) Surgeries/Procedures Procedure Description Date Indications Data Source(s) ECG ROUTINE ECG W/LEAST 12 LDS W/I&R 05/17/2021 12:00: 00 AM EDT eCW1 ([facility]ly [facility], [facility]–1983) Results ID Date Data Source HEPATITIS C ANTIBODY INDEX 07/09/2021 12:00:00 AM EDT eCW1 ( [facility], [facility]–1983) Name Value Range Interpretation Code Description Data Whit rce(s) Supporting Document(s) 0.1 <0.8 HEPATITIS C VIRUS DEBRA INDEX eC W1 (Formerly [facility], 1928–1983) ID Date Data Source HEPATITIS B SURFACE ANTIGEN 07/09/2021 12:00:00 AM EDT eCW1 ([facility]ly [facility], [facility]–1983) Name Value Range Interpretation Code Description Data Whit rce(s) Supporting Document(s) NEGATIVE NEGATIVE HEPATITIS B SURFACE ANTIG EN eCW1 ([facility]ly [facility], 1928–1983) ID Date Data Source HEPATITIS B CORE ANTIBODY IGM 07/09/2021 12:00:00 AM EDT eCW 1 ([facility]ly [facility], [facility]–1983) Name Value Range Interpretation Code Description Data Whit rce(s) Supporting Document(s) NEGATIVE NEGATIVE HEPATITIS B CORE ANTIBODY IGM eCW1 ([facility]ly [facility], 1928–1983) ID Date Data Source [id number] 07/09/2021 12:00:00 AM EDT eCW1 ([facility]) Name Value Range Interpretation Code Description Data Whit rce(s) Supporting Document(s) Hemoglobin A1c/Hemoglobin.total in Blood 5.4 HEMOGLOBIN A1c eCW1 (Formerly [facility], 1928–1983) ID Date Data Source HEPATITIS A ANTIBODY IGM 07/09/2021 12:00:00 AM EDT eCW1 ([facility]) Name Value Range Interpretation Code Description Data Whit rce(s) Supporting Document(s) NEGATIVE NEGATIVE HEPATITIS A ANTIBODY IGM eCW1 ([facility]ly [facility], 1928–1983) ID Date Data Source Comprehensive Metabolic Profile (CMP) 07/09/2021 12:00:00 AM EDT eCW1 ([facility], [facility]–1983) Name Value Range Interpretation Code Description Data Whit rce(s) Supporting Document(s) 86 70-100 GLUCOSE, FASTING eCW1 ([facility]) > 60.0 >49 GLOMERULAR FILTRATION RATE eCW 1 ([facility]ly [facility], 1928–1983) 130 136-145 SODIUM LEVEL eCW1 ([facility]) 8 7-18 BLOOD UREA NITROGEN eCW1 ([facility]) 0.63 0.70-1.30 CREATININE FOR GFR eCW1 ([facility]) 3.2 3.5-5.1 POTASSIUM SERUM eCW1 ([facility]) 92 98-107 CHLORIDE LEVEL eCW1 ([facility], 1928–1983) 28 21-32 CARBON DIOXIDE LEVEL eCW1 ([facility]) 88 12-78 ALT/SGPT eCW1 ([facility]) 9.5 8.8-10.2 CALCIUM LEVEL eCW1 ([facility], 1928–1983) 58 7-37 AST/SGOT eCW1 ([facility]) 7.8 6.4-8.2 TOTAL PROTEIN eCW1 ([facility], 1928–1983) 0.9 0.2-1.0 BILIRUBIN,TOTAL eCW1 ([facility]) 129 45-117 ALKALINE PHOSPHATASE eCW1 ([facility]) 4.3 3.2-5.2 ALBUMIN eCW1 ([facility]) 1.2 ALBUMIN/GLOBULIN RATIO eCW1 ([facility]) ID Date Data Source ALPHA FETOPROTEIN TUMOR QUANT 07/09/2021 12:00:00 AM EDT eCW 1 ([facility], [facility]–1983) Name Value Range Interpretation Code Description Data Whit rce(s) Supporting Document(s) 2.0 <8.1 ALPHA FETOPROTEIN TUMOR Q UANT eCW1 ([facility], 1928–1983) Procedure Social History Code Duration Value Status Description Data Source(s ) Smoking 07/09/2021 12:00:00 AM EDT Never Smoker completed Never S moker eCW1 ([facility], [facility]–1983) Smoking 05/17/2021 12:00:00 AM EDT Never Smoker completed Never S moker eCW1 ([facility], [facility]–1983) Smoking 05/17/2021 12:00:00 AM EDT Never Smoker completed Never S moker eCW1 ([facility], 1928–1983) Smoking 05/17/2021 12:00:00 AM EDT Never Smoker completed Never S moker eCW1 ([facility], 1928–1983) Vital Signs ID Date Data Source UNK Name Value Range Interpretation Code Description Data Source(s) Body weight 196 [lb_av] 196 [lb_av] eCW1 ([facility]) Body height 60 [in_i] 60 [in_i] eCW1 ([facility]) Body mass index (BMI) [Ratio] 38.27 kg/m2 38.27 kg/m2 eCW1 ([facility], 1928–1983) Heart rate 106 /min 106 /min eCW1 ([facility]) Respiratory rate 18 /min 18 /min eCW1 ([facility]) Body temperature 96.1 [degF] 96.1 [degF] eCW1 ( [facility], 1928–1983) Systolic blood pressure 136 mm[Hg] 136 mm[Hg] e CW1 ([facility], 1928–1983) Diastolic blood pressure 74 mm[Hg] 74 mm[Hg] eCW1 ([facility], 1928–1983) Body weight 204 [lb_av] 204 [lb_av] eCW1 ([facility]) Body height 60 [in_i] 60 [in_i] eCW1 ([facility]) Body mass index (BMI) [Ratio] 39.84 kg/m2 39.84 kg/m2 eCW1 ([facility], 1928–1983) Heart rate 82 /min 82 /min eCW1 ([facility]) Respiratory rate 18 /min 18 /min eCW1 ([facility]) Body temperature 98.1 [degF] 98.1 [degF] eCW1 ( [facility], [facility]–1983) Systolic blood pressure 186 mm[Hg] 186 mm[Hg] e CW1 ([facility], 1928–1983) Diastolic blood pressure 106 mm[Hg] 106 mm[Hg] eCW1 ([facility], 1928–1983) Patient Treatment Plan of Care Planned Activity Planned Date Details Description Data Source (s) Lisinopril 20 MG Oral Tablet 06/06/2021 12:00:00 AM EDT eCW1 ([facility], [facility]1983) Lisinopril 20 MG Oral Tablet 06/06/2021 12:00:00 AM EDT eCW1 ([facility], [facility]–1983) Lisinopril 20 MG Oral Tablet 06/06/2021 12:00:00 AM EDT eCW1 ([facility], [facility]–1983) Chlorthalidone 25 MG Oral Tablet 05/17/2021 12:00:00 AM EDT eCW1 ([facility], [facility]–1983) Chlorthalidone 25 MG Oral Tablet 05/17/2021 12:00:00 AM EDT eCW1 ([facility], [facility]1983) Chlorthalidone 25 MG Oral Tablet 05/17/2021 12:00:00 AM EDT eCW1 ([facility], [facility]–1983) Chlorthalidone 25 MG Oral Tablet 05/17/2021 12:00:00 AM EDT eCW1 ([facility], [facility]–1983)
[2021-10-07 19:13] LABS: RSV AMPLIFICATION NEGATIVE (NEGATIVE)
[2021-10-07 19:14] LABS: FREE T4 1.11 NG/DL (0.76-1.46); THYROID STIMULATING HORMONE 0.693 uIU/ML (0.358-3.740)
[2021-10-07 19:46] LABS: HEMOGLOBIN A1c 5.1 %
[2021-10-07 19:54] LABS: BLOOD UREA NITROGEN 7 MG/DL (7-18); CARBON DIOXIDE LEVEL 27 MEQ/L (21-32); CHLORIDE LEVEL 90 MEQ/L (98-107); GLOMERULAR FILTRATION RATE > 60.0 (>49); GLUCOSE, FASTING 98 MG/DL (70-100); POTASSIUM SERUM 3.4 MEQ/L (3.5-5.1); SODIUM LEVEL 127 MEQ/L (136-145)
--- NOTE | 2021-10-07 20:26 | HPEPDOC ---
General Date of Admission Oct 07, 2021 at 18:17 Date of Service: Oct 07, 2021 Chief Complaint The patient is a 61-year-old male admitted with a reason for visit of Acute Hyponatremia. Source: Patient History of Present Illness Harley Teresa is a pleasant 61-year-old male with significant medical history of hypertension who presents with complaints of visual disturbance. Patient reports that he has been at baseline with the exception of cough for the past week. He reports that he started to consider if he was "getting congested" and thus he decided to take some topw-xit-xqmvolo cough medicine. He reports that he took the cough medicine 2 times yesterday and again 2 times today. Patient reports that he ensured the cough medicine that he chose was "okay for blood pressure". He is unable to name the medication exactly. He reports today after taking a dose of the medication noticing some visual change "seeing red and pink dots" and some bilateral fingertip numbness tingling. Patient reports he is able to check his blood pressure at home and he did so. He reports blood pressure 240/100 and he was concerned of these changes and thus presented to ED. Patient underwent CT head which was nonacute. He was found to be hypertensive 192/107 and tachycardic heart rate 108. Pt denies wahl, sinus congestion, sore throat, sob, palpitations, chest pain, n/v/d, abdominal pain, weakness, or syncope. Patient does report that he has felt some "stomach churning" today. He has been vaccinated against covid reportedly and is non smoker. Initial lab work shows sodium 124, potassium 3.2. Patient does endorse an occupation of [employer] and typically day drinking 6-12 beers daily for the past 5-year. He reports his last drink was earlier this morning prior to taking a cough medicine and thus, it has roughly been 8-10 hours since last drink. Patient reports that he is interested in "cutting back" on his drinking. He is agreeable to speak with someone "later" once feeling improvement. Patient will be admitted for further evaluation management presenting concerns. 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 A-FIB/CHADSVASC A-FIB History Current/History of A-Fib/PAF?: No Current PO Anticoag Therapy: No Review of Systems Constitutional: Denies: Chills, Fever, Night Sweats Eyes: Denies: Pain, Vision change ENT: Denies: Head Aches, Ear Pain, Dysphagia Skin: Denies: Rash, Lesions, Breakdown Pulmonary: Reports: Cough; Denies: Dyspnea Cardiovascular: Denies: Chest Pain, Palpitations, Orthopnea, Paroxysmal Noc. Dyspnea, Lt Headedness Gastrointestinal: Denies: Nausea, Vomiting, Abdominal Pain, Diarrhea Genitourinary: Denies: Dysuria, Frequency, Incontinence, Retention Hematologic: Denies: Bruising, Bleeding Excessively Musculoskeletal: Denies: Neck Pain, Back Pain, Joint Pain, Muscle Pain, Spasms Neurological: Reports: Numbness, Other Symptoms (Visual disturbance); Denies: Weakness, Change in speech, Confusion Psych: Reports: Mood Normal, Other Psych (Visual disturbance); Denies: Depression, Memory Issues Physical Examination General Exam: Positive: Alert, Cooperative, No Acute Distress Eye Exam: Positive: PERRLA, Conjunctiva & lids normal, EOMI; Negative: Sclera icteric ENT Exam: Positive: Atraumatic, Mucous membr. moist/pink, Pharynx Normal Neck Exam: Positive: Supple; Negative: JVD, thyromegaly Chest Exam: Positive: Clear to auscultation, Normal air movement Heart Exam: Positive: Tachycardic, Regular Rhythm, Normal S1, Normal S2; Negative: Murmurs, Rubs Telemetry: Positive: Sinus, Tachycardia Abdomen Exam: Positive: Normal bowel sounds, Soft; Negative: Tenderness, Hepatospenomegaly Extremity Exam: Positive: Normal pulses; Negative: Clubbing, Cyanosis, Edema Skin Exam: Positive: Nl turgor and temperature; Negative: Breakdown, Lesion Neuro Exam: Positive: Normal Gait, Normal Speech, Cranial Nerves 3-12 NL, Reflexes 2+ Psych Exam: Positive: Mental status NL, Mood NL, Oriented x 3 Vital Signs Vital Signs Date Time Temp Pulse Resp B/P (MAP) Pulse Ox O2 Delivery O2 Flow Rate FiO2 10/07/21 18:23 91 152/78 10/07/21 18:15 97 10/07/21 14:15 98.3 16 Room Air Laboratory Data Labs 24H Laboratory Tests 2 10/07/21 14:27: Immature Granulocyte % (Auto) 0.3, Neutrophils (%) (Auto) 85.2H, Lymphocytes (%) (Auto) 5.9L, Monocytes (%) (Auto) 5.1, Eosinophils (%) (Auto) 3.0, Basophils (%) (Auto) 0.5, Neutrophils # (Auto) 5.4, Lymphocytes # (Auto) 0.4L, Monocytes # (Auto) 0.3, Eosinophils # (Auto) 0.2, Basophils # (Auto) 0.0, Nucleated Red Blood Cells % (auto) 0.0, Anion Gap 10, Glomerular Filtration Rate > 60.0, Calcium Level 9.0, Total Bilirubin 0.9, Aspartate Amino Transf (AST/SGOT) 41H, Alanine Aminotransferase (ALT/SGPT) 62, Alkaline Phosphatase 96, Total Creatine Kinase 170, Creatine Kinase MB 3.2, Creatine Kinase MB Relative Index 1.88, Troponin I < 0.02, Total Protein 7.4, Albumin 4.0, Albumin/Globulin Ratio 1.2 10/07/21 15:58: Phosphorus Level 2.8, Magnesium Level 1.9, Vitamin B12 Level 325, Folate 13.3 10/07/21 16:25: Urine Color YELLOW, Urine Appearance CLEAR, Urine pH 7.0, Urine Specific Udall 1.012, Urine Protein NEGATIVE, Urine Glucose (UA) NEGATIVE, Urine Ketones 1+H, Urine Blood NEGATIVE, Urine Nitrite NEGATIVE, Urine Bilirubin NEGATIVE, Urine Urobilinogen 2.0H, Urine Leukocyte Esterase NEGATIVE, Urine WBC (Auto) 1, Urine RBC (Auto) 2, Urine Hyaline Casts (Auto) 0, Urine Bacteria (Auto) NEGATIVE, Urine Squamous Epithelial Cells 0, Urine Mucus (Auto) SMALL, Urine Sperm (Auto) 10/07/21 17:50: Urine Osmolality 504, Urine Random Creatinine 79.7, Urine Random Sodium 86 10/07/21 18:18: CBC/BMP Laboratory Tests 10/07/21 14:27 Assessment/Plan 1. Erythropsia and numbness/tingling of fingers: In setting of hypertensive urgency, hyponatremia and likely driven by ETOH withdrawal. CT head nonacute. Pt without focal weakness or vision blurring or loss. Pt describes a "pink/ reddish coloring" when viewing anything- most notably with light and thus, he describes some photophobia. Limitation to ophthalmoscope exam given photophobia. No recent reported outpatient eye exam or history of flare hemorrhaging that patient can describe. -Monitor pt, neurochecks q4h; although lower suspicion for acute neurological or ocular derangement -Consider differential -Should pt be without improvement or worsening visual symptoms as below is treated, would consult ophthalmology for recommendations 2. ETOH withdrawal -Tele -Seizure precautions -Supportive care, symptom management -CIWA protocol, consider addition of serax pend pt response -thiamine, folate, multivitamin -De-escalation techniques accordingly. -Labs for electrolyte derangements, replete as needed 3. Hyponatremia: Na 124. In setting of thiazide diuretic, artem inhibitor and ETOH use; consider beer potomania. Na per chart review 130-132 last on file. -Check Serum osmo, Ur sodium -lipid panel -Pt received hydration in ED -Serial BMPs -Pt Home meds will be held; anticipate lisinopril continuation tomorrow. -Consider nephrology feedback should pt have worsening Na 4. Hypertensive urgency: Possible component of exacerbation with use of OTC cold medicine. -Monitor BP in setting of above. -Thiazide diuretic on hold. -As mentioned, patient will be on CIWA protocol and this will likely assist in blood pressure control. -Additionally, lisinopril will be considered to be given tomorrow pending angel ent sodium response 5. Scalp abrasion: Scabbed, healing. Continue to monitor, daily hygiene of scal p. 6. LLE presumed lipoma: Pt with LLE quarter sized lesion, soft, nontender and some darker pigmentation perceptible compared to surrounding skin. No trauma, no area or induration or erythema. Encourage pt to f/u with Derm and PCP for monitoring. 7. Obesity: Complicates care DVT prophylaxis: Elton score low, encourage early ambulation CODE STATUS full code Disposition planning: Home pending clinical improvement Plan / VTE VTE Prophylaxis Ordered?: Yes ZOIE WINTERS NP Oct 07, 2021 20:02
[2021-10-07] MEDS: THIAMINE 100 MG TAB PO SCH (20:38)
--- NOTE | 2021-10-07 20:57 | REPVR ---
PROCEDURE INFORMATION: Exam: XR Chest Exam date and time: 10/07/2021 8:24 PM Age: 61 years old Clinical indication: Cough TECHNIQUE: Imaging protocol: XR of the chest. Views: 1 view. COMPARISON: CR Chest, 2 view PA, Lat 01/10/2017 9:42 AM FINDINGS: Lungs: Unremarkable. No consolidation. Pleural spaces: Unremarkable. No pleural effusion. No pneumothorax. Heart/Mediastinum: Unremarkable. No cardiomegaly. Bones/joints: Unremarkable. IMPRESSION: No acute findings. Electronically signed by: Leonel Wen On 10/07/2021 20:57:14 PM
[2021-10-07] MEDS ORDERED: MULTIVITAMIN -ADULT INJECTION 10 ML, THIAMINE INJection 100 MG, FOLIC ACID 1 MG in NS 1... IV ONE (21:00)
[2021-10-07] MEDS: LORazepam 2 MG TAB PO PRN (22:27)
[2021-10-07] MEDS ORDERED: POTASSIUM CHLORIDE 10MEQ SR TABLET PO ONE (22:30)
[2021-10-07 23:05] VITALS: BP 171/83
[2021-10-07 23:14] LABS: BLOOD UREA NITROGEN 7 MG/DL (7-18); CALCIUM LEVEL 8.9 MG/DL (8.8-10.2); CARBON DIOXIDE LEVEL 27 MEQ/L (21-32); CHLORIDE LEVEL 90 MEQ/L (98-107); CREATININE FOR GFR 0.64 MG/DL (0.70-1.30); GLOMERULAR FILTRATION RATE > 60.0 (>49); GLUCOSE, FASTING 162 MG/DL (70-100); SODIUM LEVEL 126 MEQ/L (136-145)
[2021-10-07] MEDS ORDERED: ACETAMINOPHEN TAB 650MG DOSE (2X325MG) PO ONE (23:50)
[2021-10-07 23:53] LABS: AMPHETAMINES LEVEL URINE NEGATIVE (NEGATIVE); BARBITURATES URINE NEGATIVE (NEGATIVE); BENZODIAZEPINES URINE NEGATIVE (NEGATIVE); CANNABINOIDS URINE NEGATIVE (NEGATIVE); COCAINE METABOLITE URINE NEGATIVE (NEGATIVE); METHADONE URINE NEGATIVE (NEGATIVE); OPIATES URINE NEGATIVE (NEGATIVE); PHENCYCLIDINE URINE NEGATIVE (NEGATIVE)
[2021-10-07 23:55] LABS: C REACTIVE PROTEIN QUANTITATIV < 0.30 MG/DL (0.00-0.30)
[2021-10-08] VITALS (7 sets, daily range): BP systolic 123–185; BP diastolic 69–98
[2021-10-08 00:01] LABS: ERYTHROCYTE SEDIMENTATION RATE 7 mm/hr (0-20)
[2021-10-08 03:29] LABS: BLOOD UREA NITROGEN 6 MG/DL (7-18); CALCIUM LEVEL 8.4 MG/DL (8.8-10.2); CARBON DIOXIDE LEVEL 28 MEQ/L (21-32); CHLORIDE LEVEL 95 MEQ/L (98-107); CREATININE FOR GFR 0.49 MG/DL (0.70-1.30); GLOMERULAR FILTRATION RATE > 60.0 (>49); GLUCOSE, FASTING 108 MG/DL (70-100); POTASSIUM SERUM 3.4 MEQ/L (3.5-5.1); SODIUM LEVEL 130 MEQ/L (136-145)
--- NOTE | 2021-10-08 06:35 | ECGEPIP ---
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
[2021-10-08] MEDS: THIAMINE 100 MG TAB PO SCH ×2 (08:02→20:19)
[2021-10-08 08:38] LABS: BASO % 0.6 % (0.0-1.0); EOS % 0.8 % (0.0-3.0); HEMATOCRIT 37.3 % (42.0-52.0); HEMOGLOBIN 13.6 g/dl (13.5-17.5); LYMPH # 0.7 10^3/uL (1.5-5.0); LYMPH % 18.7 % (24.0-44.0); MEAN CORPUSCULAR HEMOGLOBIN 34.7 pg (27.0-33.0); MEAN CORPUSCULAR HGB CONC 36.5 g/dl (32.0-36.5); MEAN CORPUSCULAR VOLUME 95.2 fl (80.0-96.0); MONO # 0.4 10^3/uL (0.0-0.8); MONO % 10.1 % (2.0-8.0); NEUTROPHILS # 2.5 10^3/uL (1.5-8.5); NEUTROPHILS % 69.5 % (36.0-66.0); PLATELET COUNT, AUTOMATED 224 10^3/uL (150-450); RED BLOOD COUNT 3.92 10^6/uL (4.30-6.10); WHITE BLOOD COUNT 3.6 10^3/uL (4.0-10.0)
[2021-10-08 08:56] LABS: BLOOD UREA NITROGEN 6 MG/DL (7-18); CREATININE FOR GFR 0.55 MG/DL (0.70-1.30); GLOMERULAR FILTRATION RATE > 60.0 (>49); GLUCOSE, FASTING 113 MG/DL (70-100); POTASSIUM SERUM 3.6 MEQ/L (3.5-5.1); SODIUM LEVEL 130 MEQ/L (136-145)
[2021-10-08 08:57] LABS: CALCIUM LEVEL 9.1 MG/DL (8.8-10.2); CARBON DIOXIDE LEVEL 31 MEQ/L (21-32); CHLORIDE LEVEL 93 MEQ/L (98-107); CHOLESTEROL LEVEL 221 MG/DL (<200); CHOLESTEROL RISK RATIO 1.841 (<5); HDL CHOLESTEROL 120 MG/DL (>40); LDL CHOLESTEROL 94 MG/DL (<100); NON-HDL-C 101 MG/DL; TRIGLYCERIDES LEVEL 36 MG/DL (<150)
[2021-10-08] MEDS ORDERED: MULTIVITAMINS/MINERALS THERAP 1 TAB PO SCH (09:00)
[2021-10-08] MEDS ORDERED: FOLIC ACID 1 MG TAB PO SCH (09:00)
[2021-10-08 11:08] LABS: BLOOD UREA NITROGEN 6 MG/DL (7-18); CALCIUM LEVEL 9.3 MG/DL (8.8-10.2); CARBON DIOXIDE LEVEL 31 MEQ/L (21-32); CHLORIDE LEVEL 91 MEQ/L (98-107); GLOMERULAR FILTRATION RATE > 60.0 (>49); GLUCOSE, FASTING 73 MG/DL (70-100); POTASSIUM SERUM 3.3 MEQ/L (3.5-5.1); SODIUM LEVEL 130 MEQ/L (136-145)
[2021-10-08] MEDS ORDERED: LISI40TA4 PO (11:55)
[2021-10-08] MEDS ORDERED: THIA100TA PO (11:55)
[2021-10-08] MEDS ORDERED: FOLI1TAB11 PO (11:55)
[2021-10-08 15:04] LABS: BLOOD UREA NITROGEN 7 MG/DL (7-18); CALCIUM LEVEL 9.3 MG/DL (8.8-10.2); CARBON DIOXIDE LEVEL 27 MEQ/L (21-32); CHLORIDE LEVEL 92 MEQ/L (98-107); CREATININE FOR GFR 0.69 MG/DL (0.70-1.30); GLOMERULAR FILTRATION RATE > 60.0 (>49); GLUCOSE, FASTING 154 MG/DL (70-100); POTASSIUM SERUM 3.4 MEQ/L (3.5-5.1); SODIUM LEVEL 128 MEQ/L (136-145)
[2021-10-08] MEDS: LORazepam 2 MG TAB PO PRN (15:51)
--- NOTE | 2021-10-08 16:51 | IPNPDOC ---
Text Note Date of Service The patient was seen on 10/08/21. NOTE Subjective: Patient stated that his symptoms resolved. He does not have any tingling or visual disturbances. Patient denies any chest pain, palpitations, diarrhea or dysuria Objective: GENERAL APPEARANCE: NAD HEENT: no scleral icterus, no JVD, EOMI CARDIOVASCULAR: S1S2 LUNGS: Diminished lung sounds bilaterally ABDOMEN: soft & not tender w palpation MUSCULOSKELETAL: no cyanosis, no swelling INTEGUMENT: no generalized pallor NEUROLOGICAL: cranial nerve function from 2-12 intact, follows commands, speech not dysarthric Assessment and plan Patient is 61 years old male with past medical history of hypertension, EtOH abuse presented to hospital with visual disturbances. 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 and EtOH abuse as beer portal yaw Fluid restriction for now Stop chlorthalidone Continue to monitor BMP every 6 hours Fluid restriction 1500 cc Hypertensive urgency/ hypertension I increased the dose of lisinopril to 40 mg daily EtOH abuse No signs of alcohol withdrawal Continue CIWA Visual disturbances Most likely secondary to hypertensive urgency Resolved DVT prophylaxis with heparin 5000 twice daily VS,Fishbone, I+O VS, Fishbone, I+O Laboratory Tests 10/07/21 19:19 10/07/21 22:41 10/08/21 02:44 10/08/21 08:19 10/08/21 10:31 10/08/21 14:37 Vital Signs Date Time Temp Pulse Resp B/P (MAP) Pulse Ox O2 Delivery O2 Flow Rate FiO2 10/08/21 12:16 155/87 10/08/21 12:00 98.1 69 18 100 Room Air I&O- Last 24 Hours up to 6 AM 10/08/21 06:00 Intake Total 420 ml Output Total 1000 ml Balance -580 ml ADORE KHANNA DO Oct 08, 2021 16:51
[2021-10-08 17:28] LABS: BLOOD UREA NITROGEN 7 MG/DL (7-18); CARBON DIOXIDE LEVEL 29 MEQ/L (21-32); CHLORIDE LEVEL 94 MEQ/L (98-107); CREATININE FOR GFR 0.58 MG/DL (0.70-1.30); GLOMERULAR FILTRATION RATE > 60.0 (>49); GLUCOSE, FASTING 124 MG/DL (70-100); POTASSIUM SERUM 3.4 MEQ/L (3.5-5.1); SODIUM LEVEL 129 MEQ/L (136-145)
[2021-10-08 17:29] LABS: CALCIUM LEVEL 9.4 MG/DL (8.8-10.2)
[2021-10-08] MEDS ORDERED: HEPARIN SOD (PORCINE) 5000UNITS/ML 1ML VIAL/SYRINGE SQ SCH (21:00)
[2021-10-08 22:51] LABS: BLOOD UREA NITROGEN 8 MG/DL (7-18); CARBON DIOXIDE LEVEL 30 MEQ/L (21-32); CHLORIDE LEVEL 96 MEQ/L (98-107); CREATININE FOR GFR 0.54 MG/DL (0.70-1.30); GLOMERULAR FILTRATION RATE > 60.0 (>49); GLUCOSE, FASTING 114 MG/DL (70-100); POTASSIUM SERUM 3.2 MEQ/L (3.5-5.1); SODIUM LEVEL 130 MEQ/L (136-145)
[2021-10-08] MEDS ORDERED: POTASSIUM CHLORIDE 10MEQ SR TABLET PO ONE (23:25)
[2021-10-09] VITALS: BP_SYST 123; BP_DIAS 69; BP_DIAS 72
[2021-10-09 02:59] LABS: BASO % 0.7 % (0.0-1.0); EOS # 0.1 10^3/uL (0.0-0.5); EOS % 1.6 % (0.0-3.0); HEMATOCRIT 36.8 % (42.0-52.0); HEMOGLOBIN 13.3 g/dl (13.5-17.5); LYMPH # 0.9 10^3/uL (1.5-5.0); LYMPH % 21.5 % (24.0-44.0); MEAN CORPUSCULAR HEMOGLOBIN 34.6 pg (27.0-33.0); MEAN CORPUSCULAR HGB CONC 36.1 g/dl (32.0-36.5); MEAN CORPUSCULAR VOLUME 95.8 fl (80.0-96.0); MONO # 0.4 10^3/uL (0.0-0.8); MONO % 10.1 % (2.0-8.0); NEUTROPHILS # 2.8 10^3/uL (1.5-8.5); NEUTROPHILS % 65.9 % (36.0-66.0); PLATELET COUNT, AUTOMATED 201 10^3/uL (150-450); RED BLOOD COUNT 3.84 10^6/uL (4.30-6.10); WHITE BLOOD COUNT 4.3 10^3/uL (4.0-10.0)
[2021-10-09 03:14] LABS: BLOOD UREA NITROGEN 7 MG/DL (7-18); CALCIUM LEVEL 8.9 MG/DL (8.8-10.2); CARBON DIOXIDE LEVEL 27 MEQ/L (21-32); CHLORIDE LEVEL 97 MEQ/L (98-107); CREATININE FOR GFR 0.49 MG/DL (0.70-1.30); GLOMERULAR FILTRATION RATE > 60.0 (>49); GLUCOSE, FASTING 111 MG/DL (70-100); POTASSIUM SERUM 3.5 MEQ/L (3.5-5.1); SODIUM LEVEL 130 MEQ/L (136-145)
[2021-10-09 04:00] VITALS: BP 127/79
[2021-10-09 04:20] VITALS: BP 127/79
--- NOTE | 2021-10-09 16:00 | DS.PDOC ---
Discharge Summary General Date of Admission Oct 07, 2021 at 18:17 Date of Discharge 10/09/21 Discharge Summary PROCEDURES PERFORMED DURING STAY: [None]. ADMITTING DIAGNOSES: Hyponatremia Hypertensive urgency/ hypertension EtOH abuse Visual disturbances DISCHARGE DIAGNOSES: Hyponatremia Hypertensive urgency/ hypertension EtOH abuse Visual disturbances COMPLICATIONS/CHIEF COMPLAINT: Acute Hyponatremia. HISTORY OF PRESENT ILLNESS: Patient is 61 years old male with past medical history of hypertension, EtOH abuse presented to hospital with visual disturbances. 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 ALLERGIES: Please see below. PHYSICAL EXAMINATION ON DISCHARGE: VITAL SIGNS: Please see below. GENERAL APPEARANCE: NAD HEENT: no scleral icterus, no JVD, EOMI CARDIOVASCULAR: S1S2 LUNGS: Diminished lung sounds bilaterally ABDOMEN: soft & not tender w palpation MUSCULOSKELETAL: no cyanosis, no swelling INTEGUMENT: no generalized pallor NEUROLOGICAL: cranial nerve function from 2-12 intact, follows commands, speech not dysarthric LABORATORY DATA: Please see below. PROGNOSIS: Fair ACTIVITY: [As tolerated]. DIET: Cardiac DISPOSITION: 01 Home, Self-Care. DISCHARGE INSTRUCTIONS: Stop drinking EtOH ITEMS TO FOLLOWUP ON ON OUTPATIENT: Follow-up with PCP DISCHARGE CONDITION: [Stable]. TIME SPENT ON DISCHARGE:40 minutes. Vital Signs/I&Os Vital Signs Date Time Temp Pulse Resp B/P (MAP) Pulse Ox O2 Delivery O2 Flow Rate FiO2 10/09/21 04:20 69 127/79 10/09/21 04:00 97.4 18 100 10/09/21 00:00 Room Air I&O- Last 24 Hours up to 6 AM 10/09/21 06:00 Intake Total 840 ml Balance 840 ml Laboratory Data Labs 24H Laboratory Tests 2 10/08/21 16:48: Anion Gap 6L, Glomerular Filtration Rate > 60.0, Calcium Level 9.4 10/08/21 22:24: Anion Gap 4L, Glomerular Filtration Rate > 60.0, Calcium Level 9.0 10/09/21 02:48: Anion Gap 6L, Glomerular Filtration Rate > 60.0, Calcium Level 8.9, Immature Granulocyte % (Auto) 0.2, Neutrophils (%) (Auto) 65.9, Lymphocytes (%) (Auto) 21.5L, Monocytes (%) (Auto) 10.1H, Eosinophils (%) (Auto) 1.6, Basophils (%) (Auto) 0.7, Neutrophils # (Auto) 2.8, Lymphocytes # (Auto) 0.9L, Monocytes # (Auto) 0.4, Eosinophils # (Auto) 0.1, Basophils # (Auto) 0.0, Nucleated Red Blood Cells % (auto) 0.0 CBC/BMP Laboratory Tests 10/08/21 16:48 10/08/21 22:24 10/09/21 02:48 Discharge Medications Scheduled Folic Acid (Folic Acid) 1 Mg Tablet, 1 MG PO DAILY Lisinopril (Lisinopril) 40 Mg Tablet, 1 TAB PO DAILY Thiamine Hcl (Vitamin B-1) 100 Mg Tablet, 100 MG PO BID Allergies Coded Allergies: No Known Allergies (Unverified , 10/07/21) ADORE KHANNA DO Oct 09, 2021 16:00
== END 2021-10-09 09:22 | disposition home or self-care (01) | DRG 199 ==
LOC: M ED 14:14 → M ED INP 18:17 → M PCU 23:03
PROVIDERS: ADMIT Family Medicine; ATTEND Internal Medicine
DX: I16.0 Hypertensive urgency (principal); E87.1 Hypo-osmolality and hyponatremia; E66.9 Obesity, unspecified; Z68.31 Body mass index [BMI] 31.0-31.9, adult; F10.10 Alcohol abuse, uncomplicated; Z79.899 Other long term (current) drug therapy; I10 Essential (primary) hypertension

== ENCOUNTER → 2021-10-15 | Outpatient (REF) | payer BC ==
[~2021-10-15] MED LIST changes: +CHLO125TA PO; +FOLI1TAB11 PO; +LISI20TA33 PO; +LISI40TA4 PO; +THIA100TA PO
[2021-10-15 16:42] LABS: HEMATOCRIT 40.6 % (42.0-52.0); HEMOGLOBIN 14.1 g/dl (13.5-17.5); MEAN CORPUSCULAR HEMOGLOBIN 34.6 pg (27.0-33.0); MEAN CORPUSCULAR HGB CONC 34.7 g/dl (32.0-36.5); MEAN CORPUSCULAR VOLUME 99.8 fl (80.0-96.0); PLATELET COUNT, AUTOMATED 237 10^3/uL (150-450); RED BLOOD COUNT 4.07 10^6/uL (4.30-6.10); WHITE BLOOD COUNT 5.5 10^3/uL (4.0-10.0)
[2021-10-15 17:00] LABS: ALBUMIN 4.2 GM/DL (3.2-5.2); ALT/SGPT 107 U/L (12-78); BILIRUBIN,TOTAL 0.4 MG/DL (0.2-1.0); BLOOD UREA NITROGEN 10 MG/DL (7-18); CALCIUM LEVEL 9.7 MG/DL (8.8-10.2); CARBON DIOXIDE LEVEL 30 MEQ/L (21-32); CHLORIDE LEVEL 97 MEQ/L (98-107); CREATININE FOR GFR 0.54 MG/DL (0.70-1.30); GLOMERULAR FILTRATION RATE > 60.0 (>49); GLUCOSE, FASTING 101 MG/DL (70-100); MAGNESIUM LEVEL 2.2 MG/DL (1.8-2.4); POTASSIUM SERUM 4.1 MEQ/L (3.5-5.1); SODIUM LEVEL 132 MEQ/L (136-145); TOTAL PROTEIN 7.9 GM/DL (6.4-8.2)
== END ==
LOC: M SFHCADAM 11:58
PROVIDERS: ATTEND Physician Assistant
DX: I10 Essential (primary) hypertension (principal); F10.10 Alcohol abuse, uncomplicated

== ENCOUNTER → 2021-11-12 | Outpatient (REF) | payer BC ==
[2021-11-12 17:23] LABS: BLOOD UREA NITROGEN 11 MG/DL (7-18); CALCIUM LEVEL 8.9 MG/DL (8.8-10.2); CARBON DIOXIDE LEVEL 28 MEQ/L (21-32); CHLORIDE LEVEL 100 MEQ/L (98-107); CREATININE FOR GFR 0.64 MG/DL (0.70-1.30); GLOMERULAR FILTRATION RATE > 60.0 (>49); GLUCOSE, FASTING 97 MG/DL (70-100); POTASSIUM SERUM 3.8 MEQ/L (3.5-5.1); SODIUM LEVEL 135 MEQ/L (136-145)
== END ==
LOC: M SFHCADAM 14:38
PROVIDERS: ATTEND Physician Assistant Medical
DX: E87.1 Hypo-osmolality and hyponatremia (principal); I10 Essential (primary) hypertension; F10.10 Alcohol abuse, uncomplicated

== ENCOUNTER → 2022-10-28 | Outpatient (REF) | payer BC ==
[2022-10-28 18:40] LABS: BASO % 0.5 % (0.0-1.0); EOS # 0.1 10^3/uL (0.0-0.5); EOS % 1.3 % (0.0-3.0); HEMATOCRIT 40.1 % (42.0-52.0); HEMOGLOBIN 13.8 g/dl (13.5-17.5); LYMPH # 1.3 10^3/uL (1.5-5.0); LYMPH % 21.1 % (24.0-44.0); MEAN CORPUSCULAR HEMOGLOBIN 33.5 pg (27.0-33.0); MEAN CORPUSCULAR HGB CONC 34.4 g/dl (32.0-36.5); MEAN CORPUSCULAR VOLUME 97.3 fl (80.0-96.0); MONO # 0.6 10^3/uL (0.0-0.8); MONO % 10.1 % (2.0-8.0); NEUTROPHILS % 66.8 % (36.0-66.0); PLATELET COUNT, AUTOMATED 250 10^3/uL (150-450); RED BLOOD COUNT 4.12 10^6/uL (4.30-6.10)
[2022-10-28 19:10] LABS: ALBUMIN 4.5 G/DL (3.2-5.2); CARBON DIOXIDE LEVEL 28 MMOL/L (20-31); CHLORIDE LEVEL 97 MMOL/L (98-107); POTASSIUM SERUM 4.1 MMOL/L (3.5-5.1); SODIUM LEVEL 134 MMOL/L (136-145)
[2022-10-28 19:13] LABS: TRIGLYCERIDES LEVEL 70 MG/DL (<150)
[2022-10-28 19:14] LABS: BLOOD UREA NITROGEN 9 MG/DL (9-23); CALCIUM LEVEL 9.7 MG/DL (8.3-10.6); GLUCOSE, FASTING 86 MG/DL (74-106)
[2022-10-28 19:15] LABS: ALKALINE PHOSPHATASE 99 U/L (46-116)
[2022-10-28 19:16] LABS: ALT/SGPT 43 U/L (7.0-40); AST/SGOT 33 U/L (<34); BILIRUBIN,TOTAL 0.7 MG/DL (0.3-1.2); CHOLESTEROL LEVEL 198 MG/DL (<200); CHOLESTEROL RISK RATIO 2.08 (<5); CREATININE FOR GFR 0.55 MG/DL (0.70-1.30); GLOMERULAR FILTRATION RATE > 60.0 (>49); HDL CHOLESTEROL 95.1 MG/DL (>40); LDL CHOLESTEROL 88.9 MG/DL (<100); NON-HDL-C 103 MG/DL; TOTAL PROTEIN 7.8 G/DL (5.7-8.2)
[2022-10-28 19:22] LABS: THYROID STIMULATING HORMONE 1.175 uIU/ML (0.55-4.78)
== END ==
LOC: M SFHCADAM 15:03
PROVIDERS: ATTEND Physician Assistant Medical
DX: I10 Essential (primary) hypertension (principal); F10.10 Alcohol abuse, uncomplicated; K76.0 Fatty (change of) liver, not elsewhere classified

== ENCOUNTER → 2023-06-08 | Outpatient (CLI) | payer BC | LOC: M RAD 16:04 | PROVIDERS: ATTEND Physician Assistant Medical | DX: R60.0 Localized edema (principal) ==

== ENCOUNTER → 2023-09-01 | Outpatient (CLI) | payer BC | LOC: M ADAMS 09:26 | PROVIDERS: ATTEND Physician Assistant Medical | DX: R20.2 Paresthesia of skin (principal); M25.552 Pain in left hip ==

== ENCOUNTER → 2023-09-01 | Outpatient (REF) | payer BC ==
[2023-09-01 15:21] LABS: BLOOD UREA NITROGEN 8 MG/DL (9-23); CALCIUM LEVEL 9.5 MG/DL (8.3-10.6); CARBON DIOXIDE LEVEL 26 MMOL/L (20-31); CHLORIDE LEVEL 98 MMOL/L (98-107); CREATININE FOR GFR 0.56 MG/DL (0.70-1.30); GLOMERULAR FILTRATION RATE > 60.0 (>49); GLUCOSE, FASTING 116 MG/DL (74-106); POTASSIUM SERUM 3.7 MMOL/L (3.5-5.1); SODIUM LEVEL 130 MMOL/L (136-145)
== END ==
LOC: M SFHCADAM 09:22
PROVIDERS: ATTEND Physician Assistant Medical
DX: I10 Essential (primary) hypertension (principal)

== ENCOUNTER → 2023-10-08 | Outpatient (CLI) | payer BC | LOC: M PLAIMG 13:59 | PROVIDERS: ATTEND Physician Assistant Medical | DX: M47.816 Spondylosis without myelopathy or radiculopathy, lumbar region (principal) ==

== ENCOUNTER → 2023-11-16 | Outpatient (REF) | payer BC ==
[2023-11-16 13:30] LABS: BASO % 0.5 % (0.0-1.0); HEMATOCRIT 38.9 % (42.0-52.0); HEMOGLOBIN 13.2 g/dl (13.5-17.5); LYMPH % 27.2 % (24.0-44.0); MEAN CORPUSCULAR HEMOGLOBIN 33.3 pg (27.0-33.0); MEAN CORPUSCULAR HGB CONC 33.9 g/dl (32.0-36.5); MEAN CORPUSCULAR VOLUME 98.2 fl (80.0-96.0); MONO # 0.4 10^3/uL (0.0-0.8); MONO % 9.7 % (2.0-8.0); NEUTROPHILS # 2.3 10^3/uL (1.5-8.5); NEUTROPHILS % 61.3 % (36.0-66.0); PLATELET COUNT, AUTOMATED 230 10^3/uL (150-450); RED BLOOD COUNT 3.96 10^6/uL (4.30-6.10); WHITE BLOOD COUNT 3.8 10^3/uL (4.0-10.0)
[2023-11-16 13:53] LABS: ALBUMIN 4.2 G/DL (3.2-5.2); ALKALINE PHOSPHATASE 79 U/L (46-116); ALT/SGPT 55 U/L (7.0-40); AST/SGOT 33 U/L (<34); BILIRUBIN,TOTAL 1.1 MG/DL (0.3-1.2); BLOOD UREA NITROGEN 7 MG/DL (9-23); CALCIUM LEVEL 9.9 MG/DL (8.3-10.6); CARBON DIOXIDE LEVEL 27 MMOL/L (20-31); CHLORIDE LEVEL 98 MMOL/L (98-107); CHOLESTEROL LEVEL 220 MG/DL (<200); CHOLESTEROL RISK RATIO 2.04 (<5); CREATININE FOR GFR 0.52 MG/DL (0.70-1.30); GLOMERULAR FILTRATION RATE > 60.0 (>49); GLUCOSE, FASTING 111 MG/DL (74-106); HDL CHOLESTEROL 107.8 MG/DL (>40); LDL CHOLESTEROL 96.8 MG/DL (<100); NON-HDL-C 112.2 MG/DL; POTASSIUM SERUM 3.9 MMOL/L (3.5-5.1); SODIUM LEVEL 133 MMOL/L (136-145); TOTAL PROTEIN 7.1 G/DL (5.7-8.2); TRIGLYCERIDES LEVEL 77 MG/DL (<150)
[2023-11-16 13:56] LABS: THYROID STIMULATING HORMONE 0.822 uIU/ML (0.55-4.78); TOTAL 25(OH) VITAMIN D 17.4 NG/ML (20.0-100.0)
== END ==
LOC: M SFHCADAM 08:14
PROVIDERS: ATTEND Physician Assistant Medical
DX: I10 Essential (primary) hypertension (principal); K76.0 Fatty (change of) liver, not elsewhere classified; R60.0 Localized edema; F10.10 Alcohol abuse, uncomplicated

== ENCOUNTER → 2024-08-04 | Outpatient (REF) | payer OTHER, MEDICAID ==
[2024-08-04 17:24] LABS: BASO # 0.1 10^3/uL (0.0-0.2); EOS # 0.1 10^3/uL (0.0-0.5); EOS % 1.4 % (0.0-3.0); HEMATOCRIT 36.9 % (42.0-52.0); HEMOGLOBIN 13.1 g/dl (13.5-17.5); LYMPH # 1.2 10^3/uL (1.5-5.0); LYMPH % 24.4 % (24.0-44.0); MEAN CORPUSCULAR HEMOGLOBIN 34.2 pg (27.0-33.0); MEAN CORPUSCULAR HGB CONC 35.5 g/dl (32.0-36.5); MEAN CORPUSCULAR VOLUME 96.3 fl (80.0-96.0); MONO # 0.5 10^3/uL (0.0-0.8); MONO % 10.4 % (2.0-8.0); NEUTROPHILS # 3.1 10^3/uL (1.5-8.5); NEUTROPHILS % 62.6 % (36.0-66.0); PLATELET COUNT, AUTOMATED 223 10^3/uL (150-450); RED BLOOD COUNT 3.83 10^6/uL (4.30-6.10)
[2024-08-04 17:53] LABS: ALBUMIN 4.3 G/DL (3.2-5.2); ALKALINE PHOSPHATASE 102 U/L (46-116); ALT/SGPT 42 U/L (7.0-40); AST/SGOT 33 U/L (<34); BILIRUBIN,TOTAL 0.7 MG/DL (0.3-1.2); BLOOD UREA NITROGEN 6 MG/DL (9-23); CALCIUM LEVEL 9.5 MG/DL (8.3-10.6); CARBON DIOXIDE LEVEL 24 MMOL/L (20-31); CHLORIDE LEVEL 98 MMOL/L (98-107); CHOLESTEROL LEVEL 211 MG/DL (<200); CHOLESTEROL RISK RATIO 2.06 (<5); CREATININE FOR GFR 0.49 MG/DL (0.70-1.30); GLOMERULAR FILTRATION RATE > 60.0 (>49); GLUCOSE, FASTING 98 MG/DL (74-106); HDL CHOLESTEROL 102.3 MG/DL (>40); LDL CHOLESTEROL 86.5 MG/DL (<100); NON-HDL-C 108.7 MG/DL; POTASSIUM SERUM 3.8 MMOL/L (3.5-5.1); SODIUM LEVEL 129 MMOL/L (136-145); TOTAL PROTEIN 7.6 G/DL (5.7-8.2); TRIGLYCERIDES LEVEL 111 MG/DL (<150)
[2024-08-04 17:56] LABS: THYROID STIMULATING HORMONE 0.747 uIU/ML (0.55-4.78)
[2024-08-04 17:57] LABS: FOLATE 14.2 NG/ML (>5.4)
[2024-08-04 17:58] LABS: VITAMIN B12 LEVEL 461 PG/ML (211-911)
== END ==
LOC: M SFHCADAM 14:52
PROVIDERS: ATTEND Physician Assistant Medical
DX: I10 Essential (primary) hypertension (principal); K76.0 Fatty (change of) liver, not elsewhere classified; F10.10 Alcohol abuse, uncomplicated; E55.9 Vitamin D deficiency, unspecified; Z12.11 Encounter for screening for malignant neoplasm of colon; Z12.12 Encounter for screening for malignant neoplasm of rectum

== ENCOUNTER → 2025-03-02 | Outpatient (CLI) | payer MEDICARE | LOC: M RAD 08:13 | PROVIDERS: ATTEND Family Medicine | DX: K76.0 Fatty (change of) liver, not elsewhere classified (principal); R16.0 Hepatomegaly, not elsewhere classified ==

== ENCOUNTER → 2025-08-09 | Outpatient (REF) | payer MEDICARE ==
[~2025-08-09] MED LIST changes: +LISI40TA10 PO; -LISI40TA4 PO
[2025-08-09 18:51] LABS: BASO # 0.0 10^3/uL (0.0-0.2); BASO % 0.5 % (0.0-1.0); EOS # 0.1 10^3/uL (0.0-0.5); EOS % 0.9 % (0.0-3.0); LYMPH # 1.2 10^3/uL (1.5-5.0); LYMPH % 21.0 % (24.0-44.0); MONO # 0.5 10^3/uL (0.0-0.8); MONO % 8.4 % (2.0-8.0); NEUTROPHILS # 4.0 10^3/uL (1.5-8.5); NEUTROPHILS % 68.9 % (36.0-66.0); PLATELET COUNT, AUTOMATED 263 10^3/uL (150-450)
[2025-08-09 18:55] LABS: IRON (FE) 108 UG/DL (65-175)
[2025-08-09 18:56] LABS: ALT/SGPT 46 U/L (7.0-40); AST/SGOT 37 U/L (<34); CALCIUM LEVEL 9.5 MG/DL (8.3-10.6); CARBON DIOXIDE LEVEL 25 MMOL/L (20-31); CHLORIDE LEVEL 99 MMOL/L (98-107); CHOLESTEROL LEVEL 199 MG/DL (<200); CHOLESTEROL RISK RATIO 1.99 (<5); CREATININE FOR GFR 0.59 MG/DL (0.70-1.30); GLOMERULAR FILTRATION RATE > 90.0 (>49); LDL CHOLESTEROL 77.8 MG/DL (<100); NON-HDL-C 99.2 MG/DL; PERCENT SATURATION 31.1 % (19.7-50.0); POTASSIUM SERUM 3.8 MMOL/L (3.5-5.1); SODIUM LEVEL 136 MMOL/L (136-145); TRIGLYCERIDES LEVEL 107 MG/DL (<150)
[2025-08-09 19:00] LABS: FREE T4 1.29 NG/DL (0.89-1.76)
[2025-08-09 19:02] LABS: TOTAL 25(OH) VITAMIN D 31.0 NG/ML (20.0-100.0)
[2025-08-09 19:03] LABS: VITAMIN B12 LEVEL 440 PG/ML (211-911)
[2025-08-09 19:33] LABS: ESTIMATED AVERAGE GLUCOSE 108.0 MG/DL (60-110)
== END ==
LOC: M SFHCADAM 13:39
PROVIDERS: ATTEND Physician Assistant Medical
DX: K76.0 Fatty (change of) liver, not elsewhere classified (principal); I10 Essential (primary) hypertension; F10.10 Alcohol abuse, uncomplicated; E55.9 Vitamin D deficiency, unspecified; Z79.899 Other long term (current) drug therapy